=== PATIENT | female | born 1935 | race Caucasian/White ===

== ENCOUNTER 2016-08-30 08:02 | Day surgery (SDC) | payer MEDICARE, OTHER ==
[2016-08-30] MEDS ORDERED: PHENYLEPHRINE 2.5% OPHTH 2 ML DROPS ONE (08:07)
[2016-08-30] MEDS ORDERED: MIDAZOLAM 2 MG/2 ML VIAL IVP ONE (08:08)
[2016-08-30] MEDS ORDERED: LABETALOL 5 MG/1 ML 20 ML MDV IV ONE (08:08)
[2016-08-30] MEDS ORDERED: LACTATED RINGERS 500 ML IV ONE (08:12)
[2016-08-30] MEDS ORDERED: CYCLOPENTOLATE 1% OPHTH DROPS 2 ML OPTH ONE (08:25)
[2016-08-30] MEDS ORDERED: PROPARACAINE 0.5% OPHTH DROPS 15 ML OPTH ONE ×2 (08:25→09:09)
[2016-08-30] MEDS ORDERED: PHENYLEPHRINE 2.5% OPHTH 2 ML DROPS OPTH ONE (08:25)
[2016-08-30] MEDS ORDERED: BRIMONIDINE 0.2% OPHTH DROPS 5 ML OPTH ONE (09:07)
[2016-08-30] MEDS ORDERED: EPINEPHrine 1 MG/ML AMP IVP ONE (09:07)
[2016-08-30] MEDS ORDERED: BSS/LIDOCAINE/EPINEPHRINE 1 ML SYRINGE IO ONE ×2 (09:09)
[2016-08-30] MEDS ORDERED: TIMOLOL 0.5% OPHTH DROPS OPTH ONE (09:09)
[2016-08-30] MEDS ORDERED: CHONDR SULF/HYALURONATE SYRINGE IO ONE (09:09)
[2016-08-30] MEDS ORDERED: TRIAMCIN/MOXIFLOX/VANCO 1 ML VIAL IO ONE (09:10)
[2016-08-30 09:58] VITALS: BP 118/75
--- NOTE | 2016-08-30 10:13 | OPERATIVE REPORT ---
DATE OF SURGERY: 08/30/2016 00:00:00 PREOPERATIVE DIAGNOSIS: Visually significant cataract, left eye. This is her first cataract surgery. POSTOPERATIVE DIAGNOSIS: Visually significant cataract, left eye. This is her first cataract surgery. NAME OF PROCEDURE: Phacoemulsification with posterior chamber intraocular lens implant, left eye. SURGEON: Jared Chamberlain M.D. ANESTHESIA: Monitored anesthesia care. COMPLICATIONS: None. 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 Best corrected visual acuity was 20/50 with glare t o 20/160 in the left eye. Indications for surgery were overall decrease in vision, difficulty driving in low light or at night, difficulty driving at night because of headlights from other vehicles, and difficulty with glare or bright lights in any situation, and bothered by blurring. She was consented at length concerning the risks and benefits of cataract surgery, after which she expressed a desire to proceed with surgery. OPERATIVE PROCEDURE: The patient was taken into OR #2 and placed under monitored anesthesia care. A s urgical time-out was conducted confirming correct patient, correct procedure, and correct surgical si te. She was given topical anesthesia and then prepped and draped in the usual sterile fashion. The eye was entered at the 6 and 3 o'clock positions. Intracameral Shugarcaine was injected into the anterior chamber followed by Viscoat. A continuous tear curvilinear capsulorrhexis was performed. The nucleus was hydrodissected and phacoemulsified. The cortex was evacuated using automated infusion/as piration. Provisc was injected in the capsular bag and a 24.0 diopter intraocular lens inserted into the bag. Approximately 0.8 mL of a mixture of triamcinolone, moxifloxacin, and vancomycin was injecte d subconjunctivally in the superior quadrant for infection and inflammation prophylaxis. I did vamshi a conjunctival blood vessel and had to use cautery to stop the bleeding. I/A was used to evacuate the viscoelastic materials. The eye was inflated to physiologic pressure using a balanced salt solution and found to be watertigh t. The patient was taken from the operating room in good condition and given postoperative instructio ns. JOB #: [id number] EXT JOB #:[id number]
== END 2016-08-30 08:03 | disposition home or self-care (01) ==
LOC: SDS 08:02
PROVIDERS: ATTEND Ophthalmology
PROC: 08RK3JZ Replacement of Left Lens with Synthetic Substitute, Percutaneous Approach (ICD-10-PCS; principal; 2016-08-30 09:00)
DX: H25.812 Combined forms of age-related cataract, left eye (principal); I49.9 Cardiac arrhythmia, unspecified; E03.9 Hypothyroidism, unspecified; Z87.891 Personal history of nicotine dependence
CPT/HCPCS: 66984; A9270; V2632

== ENCOUNTER 2016-12-06 06:13 | Day surgery (SDC) | payer MEDICARE, OTHER ==
[2016-12-06] MEDS ORDERED: KETOROLAC 0.45% OPHTH DROPS ONE (06:33)
[2016-12-06] MEDS ORDERED: PHENYLEPHRINE 2.5% OPHTH 2 ML DROPS ONE (06:33)
[2016-12-06] MEDS ORDERED: CYCLOPENTOLATE 1% OPHTH DROPS 2 ML ONE (06:33)
[2016-12-06] MEDS ORDERED: PROPARACAINE 0.5% OPHTH DROPS 15 ML ONE ×2 (06:33→07:11)
[2016-12-06] MEDS ORDERED: PROPARACAINE 0.5% OPHTH DROPS 15 ML OPTH ONE ×2 (06:46→07:37)
[2016-12-06] MEDS ORDERED: CYCLOPENTOLATE 1% OPHTH DROPS 2 ML OPTH ONE (06:47)
[2016-12-06] MEDS ORDERED: KETOROLAC 0.45% OPHTH DROPS OPTH ONE (06:48)
[2016-12-06] MEDS ORDERED: PHENYLEPHRINE 2.5% OPHTH 2 ML DROPS OPTH ONE (06:48)
[2016-12-06] MEDS ORDERED: LACTATED RINGERS 1,000 ML IV ONE (06:52)
[2016-12-06] MEDS ORDERED: ACETYLCHOLINE 20 MG/2 ML KIT IO ONE ×2 (06:57→07:11)
[2016-12-06] MEDS ORDERED: TIMOLOL 0.5% OPHTH DROPS ONE ×2 (06:58→07:08)
[2016-12-06] MEDS ORDERED: TRIAMCINOLONE PF 40 MG/ML VIAL ONE (06:58)
[2016-12-06] MEDS ORDERED: BRIMONIDINE 0.2% OPHTH DROPS 5 ML ONE ×2 (06:58→07:08)
[2016-12-06] MEDS ORDERED: MIDAZOLAM 2 MG/2 ML VIAL IVP ONE (07:30)
[2016-12-06] MEDS ORDERED: EPINEPHrine 1 MG/ML AMP IVP ONE (07:36)
[2016-12-06] MEDS ORDERED: BRIMONIDINE 0.2% OPHTH DROPS 5 ML OPTH ONE (07:36)
[2016-12-06] MEDS ORDERED: TRIAMCIN/MOXIFLOX/VANCO 1 ML VIAL IO ONE (07:37)
[2016-12-06] MEDS ORDERED: BSS/LIDOCAINE/EPINEPHRINE 1 ML SYRINGE IO ONE ×2 (07:37)
[2016-12-06] MEDS ORDERED: TIMOLOL 0.5% OPHTH DROPS OPTH ONE (07:37)
[2016-12-06] MEDS ORDERED: CHONDR SULF/HYALURONATE SYRINGE IO ONE (07:37)
[2016-12-06 08:11] VITALS: BP 116/56
--- NOTE | 2016-12-06 11:10 | OPERATIVE REPORT ---
DATE OF SURGERY: 12/06/2016 00:00:00 PREOPERATIVE DIAGNOSIS: Visually significant cataract, right eye. Cataract surgery was performed on t he left eye on 08/30/2016. POSTOPERATIVE DIAGNOSIS: Visually significant cataract, right eye. Cataract surgery was performed on the left eye on 08/30/2016. NAME OF PROCEDURE: Phacoemulsification posterior chamber intraocular lens implant, right eye. SURGEON: Jared Chamberlain MD. ANESTHESIA: Monitored anesthesia care. COMPLICATIONS: None. OPERATIVE INDICATIONS: This is an 81-year-old woman with progressive vision loss in the right eye due to 3+ nuclear sclerotic and 1+ cortical cataract. Best corrected visual acuity was 20/40 with glare to 20/50 in the right eye. Indications for surgery were overall decrease in vision, difficulty seeing words on a computer screen, difficulty reading, difficulty seeing words or close captions or game sc ores on TV, difficulty driving in low light or at night, difficulty driving at night because of headl ights from other vehicles, and difficulty with glare or bright lights in any situation. She was conse nted at length concerning the risks and benefits of cataract surgery, after which she expressed a salbador brooke to proceed with surgery. OPERATIVE PROCEDURE: The patient was taken into OR #2 and placed under monitored anesthesia care. A s urgical time-out was conducted confirming the correct patient, correct procedure and correct surgical site. She was given topical anesthesia and then prepped and draped in the usual sterile fashion. The eye was entered at the 12 and 9 o'clock positions. Intracameral Shugarcaine was injected into the an terior chamber followed by Viscoat. A continuous tear curvilinear capsulorrhexis was performed. The n ucleus was hydrodissected and phacoemulsified. The cortex was evacuated using automated infusion aspi ration. Provisc was injected in the capsular bag and a 23.5 diopter intraocular lens was inserted int o the bag. Approximately 0.7 mL of a mixture of triamcinolone, moxifloxacin, and vancomycin was injec tony subconjunctivally in the superior quadrant for infection and inflammation prophylaxis. I/A was us ed to evacuate the viscoelastic materials. The eye was inflated to physiologic pressure using balance d salt solution and found to be water tight. The patient was taken from the operating room in good co ndition and given postoperative instructions. JOB #: [id number] EXT JOB #:[id number]
== END 2016-12-06 06:14 | disposition home or self-care (01) ==
LOC: SDS 06:13
PROVIDERS: ATTEND Ophthalmology
PROC: 08RJ3JZ Replacement of Right Lens with Synthetic Substitute, Percutaneous Approach (ICD-10-PCS; principal; 2016-12-06 07:30)
DX: H25.811 Combined forms of age-related cataract, right eye (principal); I49.9 Cardiac arrhythmia, unspecified; Z79.82 Long term (current) use of aspirin
CPT/HCPCS: 66984; A9270; J3300; J3490; J7120; V2632

== ENCOUNTER 2020-11-21 16:52 | Outpatient (CLI) | payer MEDICARE, BC ==
[2020-11-21 20:01] LABS: BILIRUBIN,URINE NEGATIVE (NEGATIVE); GLUCOSE, URINE (UA) NEGATIVE (NEGATIVE); KETONES,URINE (UA) NEGATIVE (NEGATIVE); LEUKOCYTE ESTERASE, URINE TRACE (NEGATIVE); NITRITE,URINE NEGATIVE (NEGATIVE); OCCULT BLOOD,URINE NEGATIVE (NEGATIVE); PH,URINE 5.5 PH (5.0-7.5); PROTEIN,URINE NEGATIVE (NEGATIVE); UROBILINOGEN,URINE 0.2 (NORMAL) E.U./dL (NORMAL)
[2020-11-21 20:03] LABS: CLARITY,URINE HAZY (CLEAR)
[2020-11-21 20:34] LABS: BACTERIA,URINE Few /HPF (None Seen); RBC,URINE None Seen /HPF (0-5); SQUAMOUS EPITHELIAL CELL,UR NONE SEEN (<= Few)
== END 2020-11-21 16:53 | disposition home or self-care (01) ==
LOC: LAB.S 16:52
PROVIDERS: ATTEND Internal Medicine
DX: R30.0 Dysuria (principal)
CPT/HCPCS: 81001; 81003; 87077; 87086; 87181